=== PATIENT | female | born 1950 | race Caucasian/White ===

== ENCOUNTER 2019-07-08 10:16 | Outpatient (CLI) | payer MEDICARE, SELFPAY ==
--- NOTE | ~2019-07-08 | XR_ITS ---
XR lumbar spine 2-3V 07/08/2019 10:42 Indication: Low back pain. Procedure: 3 views lumbar spine Comparison: 05/27/2017 Findings: Mild dextrocurvature of the spine centered at the thoracolumbar junction. There is disc mina rowing at all lumbar levels except L5-S1. There is moderate multilevel facet hypertrophy. There is fu aneesh of multiple spinous processes posteriorly. No acute fracture, subluxation or dislocation. No carolina dence for spondylolisthesis. There is atherosclerosis of the aorta. Sacral foramen are symmetric. The re are degenerative changes of the hips. Impression: 1: Moderate lumbar spondylosis Reviewed, dictated and finalized at location A. TING TRADES WORKER Impression: 1: Moderate lumbar spondylosis
== END 2019-07-08 10:17 | disposition home or self-care (01) ==
LOC: CHSIMG 10:22
PROVIDERS: PCP Internal Medicine; Visit Provider Internal Medicine
DX: M54.5 Low back pain (principal)
CPT/HCPCS: 72100

== ENCOUNTER 2020-07-29 09:59 | Outpatient (CLI) | payer MEDICARE, SELFPAY ==
[2020-07-29 11:13] LABS: SARS-CoV-2 Ag Negative (Negative)
[2020-07-30 14:41] LABS: SARS-CoV-2 RNA PCR Negative
== END 2020-07-29 10:00 | disposition home or self-care (01) ==
LOC: CHSLAB 10:04
PROVIDERS: PCP Internal Medicine; Visit Provider Internal Medicine
DX: Z20.822 Contact with and (suspected) exposure to COVID-19 (principal)
CPT/HCPCS: 87426; C9803; U0003; U0005

== ENCOUNTER 2020-08-19 10:33 | Outpatient (CLI) | payer MEDICARE, SELFPAY ==
--- NOTE | ~2020-08-19 | XR_ITS ---
EXAMINATION: XR hip RT min 2V DATE: 08/19/2020 10:50 INDICATION: Right hip pain. TECHNIQUE: 2 views of right hip were obtained. COMPARISON: None. FINDINGS: Bone alignment is normal. No fracture. There is mild right hip osteoarthritis. IMPRESSION: 1. Mild right hip osteoarthritis. Reviewed, dictated and finalized at location A.
== END 2020-08-19 10:34 | disposition home or self-care (01) ==
LOC: CHSIMG 10:35
PROVIDERS: PCP Internal Medicine; Visit Provider Internal Medicine
DX: M25.551 Pain in right hip (principal)
CPT/HCPCS: 73502

== ENCOUNTER 2021-03-10 09:12 | Outpatient (CLI) | payer MEDICARE, SELFPAY ==
[2021-03-10 13:46] LABS: SARS-CoV-2 RNA PCR Positive (Negative)
== END 2021-03-10 09:13 | disposition home or self-care (01) ==
LOC: CHSLAB 09:14
PROVIDERS: PCP Internal Medicine; Visit Provider Internal Medicine
DX: U07.1 COVID-19 (principal)
CPT/HCPCS: C9803; U0003; U0005

== ENCOUNTER 2021-03-14 10:29 | Outpatient (CLI) | payer MEDICARE, SELFPAY ==
[2021-03-14 11:30] VITALS: BP 144/76; PULSE 76; RESP 18; TEMP 36.4; O2SAT 99
[2021-03-14] MEDS: diphenhydrAMINE HCl CAP 25 MG CAPSULE PO (11:50)
[2021-03-14] MEDS: ACETAMINOPHEN 325 MG TABLET 650 MG PO (11:50)
[2021-03-14] MEDS: FAMOTIDINE 20 MG TABLET PO (11:51)
== END 2021-03-14 10:30 | disposition home or self-care (01) ==
LOC: CHSTREATRM 10:32
PROVIDERS: PCP Internal Medicine; Visit Provider Internal Medicine
DX: Z23 Encounter for immunization (principal); U07.1 COVID-19
CPT/HCPCS: 96365; A9270; M0245; Q0245

== ENCOUNTER 2022-01-12 10:21 | Outpatient (CLI) | payer MEDICARE, SELFPAY ==
--- NOTE | ~2022-01-12 | XR_ITS ---
EXAMINATION: XR hand RT min 3V DATE: 01/12/2022 10:42 INDICATION: Right hand injury. TECHNIQUE: 3 views of right hand were obtained. COMPARISON: None. FINDINGS: Bone alignment is normal. There is a comminuted fracture of neck of fifth metacarpal. The m ain distal fracture fragment demonstrates impaction and 15 degrees palmar angulation. There is mild o steoarthritis of first carpometacarpal joint and second-fourth metacarpophalangeal joints. There is m ild to moderate osteoarthritis of most of the interphalangeal joints. There is severe osteoarthritis of second and third distal interphalangeal joints. IMPRESSION: 1. Comminuted fracture of neck of fifth metacarpal. Reviewed, dictated and finalized at location A.
== END 2022-01-12 10:22 | disposition home or self-care (01) ==
PROVIDERS: PCP Internal Medicine; Visit Provider Internal Medicine
DX: S69.91XA Unspecified injury of right wrist, hand and finger(s), initial encounter (principal)
CPT/HCPCS: 73130

== ENCOUNTER 2022-02-24 09:02 | Outpatient (CLI) | payer MEDICARE, SELFPAY ==
--- NOTE | ~2022-02-24 | XR_ITS ---
EXAM: XR hand RT min 3V DATE: 02/24/2022 09:23 HISTORY: F/U metacarpal fracture . COMPARISON: 01/12/2022. FINDINGS: Decreased mineralization. Anteriorly angulated right fifth metacarpal head fracture, no si gnificant healing change, slight rotation of a fragment of bone, stable alignment of the dominant dis pavel fragment. No lytic or blastic lesion. Scattered osteoarthritic change. No erosion or periosteal c hange. Soft tissues within normal limits. IMPRESSION: Grossly stable right fifth metacarpal head fracture, no significant interval healing reyes ge. Reviewed, dictated and finalized at location K. IMPRESSION: Grossly stable right fifth metacarpal head fracture, no significant interval healing change.
== END 2022-02-24 09:03 | disposition home or self-care (01) ==
LOC: CHSLAB 09:06
PROVIDERS: PCP Internal Medicine; Visit Provider Internal Medicine
DX: S62.306D Unspecified fracture of fifth metacarpal bone, right hand, subsequent encounter for fracture with routine healing (principal)
CPT/HCPCS: 73130

== ENCOUNTER 2022-03-27 13:07 | Outpatient (CLI) | payer MEDICARE, SELFPAY ==
--- NOTE | ~2022-03-27 | XR_ITS ---
EXAMINATION: XR hand RT min 3V INDICATION: Right fifth metacarpal fracture follow-up TECHNIQUE: Three views of the right hand are obtained. COMPARISON: 02/24/2022 FINDINGS: Again seen is a comminuted neck fracture of the fifth metacarpal. Calcified callus at the f racture site continues to increase. There are approximately 15 degrees of persistent palmar angulatio n at the fracture site. No additional fracture is identified. There is mild to moderate osteoarthriti s of the interphalangeal joints. Mild osteoarthritis is noted at the first carpometacarpal joint. IMPRESSION: 1. Comminuted neck fracture of the fifth metacarpal with continued routine healing. Reviewed, dictated and finalized at location B. IMPRESSION: 1. Comminuted neck fracture of the fifth metacarpal with continued routine heal ing.
== END 2022-03-27 13:08 | disposition home or self-care (01) ==
LOC: CHSIMG 13:11
PROVIDERS: PCP Internal Medicine; Visit Provider Internal Medicine
DX: S62.306D Unspecified fracture of fifth metacarpal bone, right hand, subsequent encounter for fracture with routine healing (principal)
CPT/HCPCS: 73130

== ENCOUNTER 2022-05-08 14:17 | Outpatient (CLI) | payer MEDICARE, SELFPAY ==
--- NOTE | ~2022-05-08 | XR_ITS ---
EXAMINATION: XR chest 2V 05/08/2022 14:34 INDICATION: Polyarthralgias PROCEDURE: 2 view chest COMPARISON: 11/28/2017 FINDINGS: The lungs are clear. The cardiomediastinal silhouette is within normal limits. There are no pleural effusions. There is no pneumothorax suspected. There is a superior endplate compression fracture of T12 which is new since prior examination. IMPRESSION: 1: NO ACUTE CARDIOPULMONARY DISEASE. 2: Age-indeterminate superior endplate compression fracture of T12, new since prior chest x-ray dated 11/28/2017. Reviewed, dictated and finalized at location A. NG BASTER IMPRESSION: 1: NO ACUTE CARDIOPULMONARY DISEASE. 2: Age-indeterminate superior endplate compression fracture of T12, new since p rior chest x-ray dated 11/28/2017.
--- NOTE | 2022-05-08 01:00 | ECHO_ITS ---
Patient Info Name: Jessica Pablo Age: 71 years : 1950 Gender: Female Ht: 63 in Wt: 175 lbs BSA: 1.91 m2 HR: 74 bpm BP: 158 / 78 mmHg Heart Rhythm: Sinus Rhythm Technical Quality: Fair Exam Date: 05/08/2022 3:13 PM Exam Location: [facility] Patient Status: Outpatient Admit Date: 05/08/2022 Staff Ordering Physician: Tj Han MD Pigment Grinder: Ritika Chatterjee RDCS Attending Provider: Tj Han MD Exam Type: CA echo doppler color flow Study Info Indications - polyarthralgia R01.1 - Cardiac murmur, unspecified Complete two-dimensional, color flow and Doppler transthoracic echocardiogram is performed. Summary 1. Complete two-dimensional, color flow and Doppler transthoracic echocardiogram is performed. 2. Left ventricular chamber dimension is normal. 3. Left ventricular systolic function is normal, estimated at 60-65%. 4. The left ventricular diastolic function is grade I diastolic dysfunction. 5. E/e' 10 is mildly elevated. 6. There is moderate aortic valve sclerosis. 7. There is mild aortic valve stenosis with a peak velocity of 251 cm/s, mean gradient of 14 mmHg, and aortic valve area of 1.6 cm2. 8. No pulmonary hypertension, estimated pulmonary arterial systolic pressure is 28 mmHg. Left Ventricle E/e' 10 is mildly elevated. Left ventricular chamber dimension is normal. Left ventricular systolic function is normal, estimated at 60-65%. The left ventricular diastolic function is grade I diastolic dysfunction. Right Ventricle Right ventricular systolic function is normal and with normal TAPSE 2.3 cm. Right ventricular chamber dimension is normal. Left Atria Left atrial chamber dimension is normal. Right Atria Right atrial chamber dimension is normal. Aortic Valve The aortic valve is probable trileaflet. There is moderate aortic valve sclerosis. There is mild aortic valve stenosis with a peak velocity of 251 cm/s, mean gradient of 14 mmHg, and aortic valve area of 1.6 cm2. There is no aortic valve regurgitation. Pulmonic Valve There is no pulmonic regurgitation. Mitral Valve There is no mitral valve stenosis. There is no mitral valve regurgitation. Tricuspid Valve There is no tricuspid valve regurgitation. No pulmonary hypertension, estimated pulmonary arterial systolic pressure is 28 mmHg. Pericardium/Pleural There is no pericardial effusion. Inferior Vena Cava Normal inferior vena cava with >50% collapse upon inspiration consistent with normal right atrial pressure, 5 mmHg. Aorta The aortic root size at the sinus of Valsalva is normal. Left Ventricular Outflow Tract Name Value Normal LVOT 2D LVOT Diameter 2.0 cm LVOT Doppler LVOT Peak Velocity 104 cm/s LVOT Peak Gradient 4 mmHg LVOT Mean Gradient 3 mmHg LVOT VTI 26 cm LVOT VTI/AV VTI Ratio 0.5 LVOT Stroke Volume 84 ml Pulmonic Valve Name
== END 2022-05-08 14:18 | disposition home or self-care (01) ==
LOC: CHSIMG 14:20
PROVIDERS: PCP Internal Medicine; Visit Provider Internal Medicine
DX: R01.1 Cardiac murmur, unspecified (principal); M13.0 Polyarthritis, unspecified
CPT/HCPCS: 71046; 93306

== ENCOUNTER 2023-04-26 08:31 | Outpatient (CLI) | payer MEDICARE, SELFPAY ==
[2023-04-26 08:55] LABS: Appearance Urine Clear (Clear); Bilirubin Urine Negative (Negative); Blood Urine Negative (Negative); Color Urine Yellow (Yellow); Glucose Urine UA Negative (Negative); Ketones Urine Negative (Negative); Leukocyte Esterase Ur Trace (Negative); Nitrate Urine Negative (Negative); Protein Urine Trace (Negative); Specific Grav Ur >= 1.030 (1.010-1.020)
[2023-04-26 09:13] LABS: Add Urine Microscopic? YES; Bacteria Urine Trace /hpf; Mucus Urine Moderate /lpf; RBC Urine None seen /hpf (0-2); Squamous Epithelial Cell Urine Moderate /hpf (Few)
[2023-04-26 09:40] LABS: Alanine Aminotransferase 32 U/L (14-59); Albumin Level 3.6 g/dL (3.4-5.0); Alkaline Phosphatase 49 U/L (46-116); Anion Gap 8 mmol/L (8-16); Aspartate Amino Transferase 21 U/L (15-37); Bilirubin,Total 0.4 mg/dL (0.00-1.00); Blood Urea Nitrogen 25 mg/dL (7-18); Calcium 8.7 mg/dL (8.5-10.1); Carbon Dioxide 28 mmol/L (21-32); Chloride 106 mmol/L (98-108); Estimated Glomerular Filt Rate 58; Glucose 104 mg/dL (70-99); Osmolality Calculated 298 mOsm/kg (285-295); Potassium 4.5 mmol/L (3.5-5.1); Sodium 142 mmol/L (136-145); Thyroid Stimulating Hormone 1.77 uIU/mL (0.36-3.74); Total Protein 7.3 g/dL (6.4-8.2)
== END 2023-04-26 08:32 | disposition home or self-care (01) ==
PROVIDERS: PCP Internal Medicine; Visit Provider Internal Medicine
DX: E03.9 Hypothyroidism, unspecified (principal)
CPT/HCPCS: 36415; 80053; 81001; 84443

== ENCOUNTER 2023-06-29 13:56 | Outpatient (CLI) | payer MEDICARE, SELFPAY ==
--- NOTE | ~2023-06-29 | XR_ITS ---
XR chest 2V 06/29/2023 14:37 Indication: Chest pain after fall Procedure: 2 view chest Comparison: 05/08/2022 Findings: Heart size normal. No focal air space disease, pulmonary edema, pleural effusion or suspect ed pneumothorax. There is a lower thoracic wedge compression deformity, likely chronic. Mild thoracic spondylosis. Impression: 1: No acute cardiopulmonary disease. Reviewed, dictated and finalized at location L. DESIGN LEAD Impression: 1: No acute cardiopulmonary disease.
--- NOTE | ~2023-06-29 | XR_ITS ---
EXAMINATION: XR thoracic spine 3V DATE: 06/29/2023 14:37 INDICATION: Midsternal pain. Fall. TECHNIQUE: 3 views of the thoracic spine on 4 radiographs were obtained. COMPARISON: Chest 2 views 05/08/2022 FINDINGS: There is 7 degrees levocurvature of upper thoracic spine. There is kyphosis of thoracic spi ne. There is a chronic compression fracture of T11 with 2/5 loss of height. There is mildly decreased disc height at multiple levels in mid and lower thoracic spine. There are endplate osteophytes at mo st levels. IMPRESSION: 1. Mild thoracic spondylosis. 2. Thoracic kyphosis. Reviewed, dictated and finalized at location E. CONFINEMENT SYSTEM MANAGER
--- NOTE | 2023-06-29 14:07 | ECG_ITS ---
Measurements Intervals [place] Rate: 73 P: 55 TX: 153 QRS: 27 QRSD: 81 T: 53 QT: 356 QTc: 394 Interpretive Statements SINUS RHYTHM LOW QRS VOLTAGE IN PRECORDIAL LEADS BORDERLINE ECG NO PREVIOUS ECG AVAILABLE FOR COMPARISON Electronically Signed On 06-29-2023 14:12:28 SOCIAL WORK THERAPIST by Reji Banuelos D.O.
[2023-06-29 14:46] LABS: Basophils Absolute Auto 0.03 K/mm3 (0.00-0.10); Basophils Percent Auto 0.2 % (0.0-1.0); Eosinophils Absolute Auto 0.11 K/mm3 (0.02-0.50); Eosinophils Percent Auto 0.9 % (1.0-6.0); Hematocrit 43.4 % (35.0-42.0); Hemoglobin 13.6 g/dL (11.7-13.8); Immature Granulocyte Absolute 0.05 K/mm3 (0.00-0.00); Immature Granulocyte Percent A 0.4 % (0.0-0.0); Lymphocytes Percent Auto 26.6 % (18.0-42.0); Mean Corpuscular HGB Conc 31.3 g/dL (32.0-36.0); Mean Corpuscular Hemoglobin 28.8 pg (27.0-31.0); Mean Corpuscular Volume 91.8 fL (78.0-102.0); Mean Platelet Volume 10.5 fl (9.2-11.8); Monocytes Absolute Auto 0.87 K/mm3 (0.10-0.90); Neutrophils Percent Auto 64.9 % (50.0-70.0); Platelet Count Result 212 K/mm3 (150-420); Red Blood Count 4.73 M/mm3 (4.20-5.40); Red Cell Distribution Width 12.9 % (11.6-14.4); White Blood Count 12.4 K/mm3 (4.8-10.8)
[2023-06-29 15:56] LABS: Alanine Aminotransferase 29 U/L (14-59); Albumin Level 3.6 g/dL (3.4-5.0); Alkaline Phosphatase 46 U/L (46-116); Anion Gap 9 mmol/L (8-16); Aspartate Amino Transferase 21 U/L (15-37); Bilirubin,Total 0.3 mg/dL (0.00-1.00); Blood Urea Nitrogen 23 mg/dL (7-18); Calcium 8.8 mg/dL (8.5-10.1); Carbon Dioxide 29 mmol/L (21-32); Chloride 104 mmol/L (98-108); Creatine Kinase 81 U/L (26-192); Estimated Glomerular Filt Rate 49; Glucose 90 mg/dL (70-99); Osmolality Calculated 297 mOsm/kg (285-295); Potassium 4.6 mmol/L (3.5-5.1); Sodium 142 mmol/L (136-145); Total Protein 7.8 g/dL (6.4-8.2)
== END 2023-06-29 13:57 | disposition home or self-care (01) ==
LOC: CHSLAB 14:00
PROVIDERS: PCP Internal Medicine; Visit Provider Internal Medicine
DX: R07.9 Chest pain, unspecified (principal); M43.04 Spondylolysis, thoracic region; M40.294 Other kyphosis, thoracic region
CPT/HCPCS: 36415; 71046; 72072; 80053; 82550; 82553; 84484; 85025; 93005

== ENCOUNTER 2024-07-04 11:37 | Outpatient (CLI) | payer MEDICARE, SELFPAY ==
--- NOTE | 2024-07-04 11:45 | ECHO_ITS ---
Patient Info Name: Jessica Pablo Age: 73 years : 1950 Gender: Female Ht: 63 in Wt: 180 lbs BSA: 1.94 m2 HR: 67 bpm BP: 130 / 72 mmHg Technical Quality: Fair Exam Date: 07/04/2024 12:35 PM Exam Location: [facility] Patient Status: Outpatient Admit Date: 07/04/2024 Staff Ordering Physician: jT Han MD Glass Blower Helper: Radha Matamoros RDCS Attending Provider: Tj Han MD Exam Type: CA echo doppler color flow Study Info Indications - Aortic stenosis Summary 1. Left ventricular chamber dimension is normal. 2. Left ventricular systolic function is normal, estimated at 60-65%. 3. The left ventricular diastolic function is grade I diastolic dysfunction. 4. E/e' 9 is minimally elevated. 5. Left atrial chamber dimension is mildly enlarged. 6. There is severe aortic valve sclerosis. 7. There is moderate aortic valve stenosis with a peak velocity of 272 cm/s, mean gradient of 17 mmHg, and aortic valve area of 1.1 cm2. 8. There is trace mitral valve regurgitation. 9. There is mild tricuspid valve regurgitation. 10. No pulmonary hypertension, estimated pulmonary arterial systolic pressure is 36 mmHg. Left Ventricle E/e' 9 is minimally elevated. Left ventricular chamber dimension is normal. Left ventricular systolic function is normal, estimated at 60-65%. The left ventricular diastolic function is grade I diastolic dysfunction. Right Ventricle Right ventricular systolic function is normal and with normal TAPSE 1.9 cm. Right ventricular chamber dimension is normal. Left Atria Left atrial chamber dimension is mildly enlarged. Right Atria Right atrial chamber dimension is normal. Aortic Valve The aortic valve is trileaflet. There is severe aortic valve sclerosis. There is moderate aortic valve stenosis with a peak velocity of 272 cm/s, mean gradient of 17 mmHg, and aortic valve area of 1.1 cm2. There is no aortic valve regurgitation. Pulmonic Valve There is no pulmonic regurgitation. Mitral Valve There is no mitral valve stenosis. There is trace mitral valve regurgitation. Tricuspid Valve There is mild tricuspid valve regurgitation. No pulmonary hypertension, estimated pulmonary arterial systolic pressure is 36 mmHg. Pericardium/Pleural There is no pericardial effusion. Inferior Vena Cava Normal inferior vena cava with >50% collapse upon inspiration consistent with normal right atrial pressure, 5 mmHg. Aorta The aortic root size at the sinus of Valsalva is normal. Left Ventricular Outflow Tract Name Value Normal LVOT 2D LVOT Diameter 2.1 cm LVOT Doppler LVOT Peak Velocity 105 cm/s LVOT Peak Gradient 4 mmHg LVOT Mean Gradient 2 mmHg LVOT VTI 26 cm LVOT VTI/AV VTI Ratio 0.3 LVOT Stroke Volume 87 ml Pulmonic Valve Name Value Normal PV Doppler PV Peak Velocity 84 cm/s PV Peak Gradient 3 mmHg Mitral Valve Name Value Normal MV Doppler MV Peak Gradient 5 mmHg MV Mean Gradient 2 mmHg MV Decel [place] 253 cm/s2 MV PHT 83 ms MV Area (PHT) 2.7 cm2 4.0-5.0 MV Area (Cont Eq VTI) 2.9 cm2 MV Diastolic Function MV E Peak Velocity 72 cm/s MV A Peak Velocity 93 cm/s MV E/A 0.8 MV Decel Time 286 ms Tricuspid Valve Name Value Normal TV Regurgitation Doppler TR Peak Velocity 277 cm/s TR Peak Gradient 27 mmHg Estimated PAP/RSVP RA Pressure 5 mmHg <=5 PA Systolic Pressure 36 mmHg <36 RV Systolic Pressure 36 mmHg <36 Aortic Valve Name Value Normal AV Doppler AV Peak Velocity 272 cm/s AV Peak Gradient 27 mmHg AV Mean Gradient 17 mmHg AV VTI 77 cm AV Area (Cont Eq VTI) 1.1 cm2 >=3.0 AV Area (Cont Eq Juanito) 1.3 cm2 AV V1/V2 Ratio 0.39 AV Regurgitation 2D LVOT Area 3.4 cm2 Ventricles Name Value Normal LV Dimensions 2D/MM IVS Diastolic Thickness (2D) 0.8 cm 0.6-1.0 LVID Diastole (2D) 4.6 cm 3.8-5.2 LVIW Diastolic Thickness (2D) 0.8 cm 0.6-0.9 LVID Systole (2D) 3.1 cm 2.2-3.5 LVOT Diameter 2.1 cm LV Mass (2D Cubed) 116.36 g 67.00-162.00 LV Mass Index (2D Cubed) 60 g/m2 43-95 Relative Wall Thickness (2D) 0.33 LV Fractional Shortening/Ejection Fraction 2D/MM LV Fractional Shortening (2D) 33 % 27-45 LV EF (2D Teicholz) 61 % 54-74 LV Diastolic Volume (4C MOD) 96 ml LV EF (4C MOD) 64 % LV Diastolic Volume (2C MOD) 79 ml LV EF (2C MOD) 54 % LV Diastolic Volume (BP MOD) 89 ml 46-106 LV Diastolic Volume Index (BP MOD) 46 ml/m2 29-61 LV Systolic Volume (BP MOD) 36 ml 14-42 LV Systolic Volume Index (BP MOD) 18 ml/m2 8-24 LV EF (BP MOD) 60 % 54-74 LV Diastolic Length (4C) 7.6 cm LV Systolic Length (4C) 6.4 cm LV Stroke Volume (4C MOD) 62 ml Atria Name Value Normal LA Dimensions LA Volume (4C A-L) 59 ml Report Signatures
== END 2024-07-04 11:38 | disposition home or self-care (01) ==
LOC: CHSIMG 11:40
PROVIDERS: PCP Internal Medicine; Visit Provider Internal Medicine
DX: E03.9 Hypothyroidism, unspecified (principal); E78.5 Hyperlipidemia, unspecified; I35.0 Nonrheumatic aortic (valve) stenosis; I07.1 Rheumatic tricuspid insufficiency
CPT/HCPCS: 93306

== ENCOUNTER 2024-11-13 08:08 | Outpatient (CLI) | payer MEDICARE, SELFPAY ==
[2024-11-13 09:21] LABS: Alanine Aminotransferase 30 U/L (6-35); Albumin Level 4.1 g/dL (3.5-5.1); Alkaline Phosphatase 42 U/L (38-126); Anion Gap 5 mmol/L (4-12); Aspartate Amino Transferase 33 U/L (14-36); Bilirubin,Total 0.4 mg/dL (0.2-1.3); Blood Urea Nitrogen 24 mg/dL (7-17); Calcium 9.1 mg/dL (8.4-10.2); Carbon Dioxide 28 mmol/L (22-30); Chloride 108 mmol/L (98-107); Cholesterol 178 mg/dL (0-200); Estimated Glomerular Filt Rate 57; Glucose 98 mg/dL (65-110); HDL Direct 45 mg/dL; LDL Cholesterol Calculated 103 mg/dL (<130); Osmolality Calculated 296 mOsm/kg (285-295); Sodium 141 mmol/L (137-145); Total Protein 6.9 g/dL (6.3-8.2); Triglycerides 150 mg/dL (<150)
== END 2024-11-13 08:09 | disposition home or self-care (01) ==
LOC: CHSLAB 08:10
PROVIDERS: PCP Internal Medicine; Visit Provider Internal Medicine Cardiovascular Disease
DX: E78.5 Hyperlipidemia, unspecified (principal)
CPT/HCPCS: 36415; 80053; 80061

== ENCOUNTER 2025-04-03 14:34 | Outpatient (CLI) | payer MEDICARE, SELFPAY ==
--- NOTE | 2025-04-03 14:36 | ECHO_ITS ---
Patient Info Name: Jessica Pablo Age: 74 years : 1950 Gender: Female Ht: 63 in Wt: 170 lbs BSA: 1.88 m2 HR: 83 bpm BP: 145 / 83 mmHg Technical Quality: Good Exam Date: 04/03/2025 2:47 PM Patient Status: O Admit Date: 04/03/2025 Exam Type: CA echo doppler color flow Complete two-dimensional, color flow and Doppler transthoracic echocardiogram is performed. Breaker Table Worker: Janet Hall Attending Provider: Reji Banuelos DO Summary 1. Complete two-dimensional, color flow and Doppler transthoracic echocardiogram is performed. 2. Left ventricular chamber dimension is normal. 3. Left ventricular systolic function is normal, estimated at 60-65. 4. The left ventricular diastolic function is grade I diastolic dysfunction. 5. E/e' 14 is mildly elevated. 6. Left atrial chamber dimension is moderately enlarged. 7. The aortic valve is not well visualized. Cannot determine number of aortic valve leaflets. 8. There is moderate aortic valve sclerosis. 9. There is mild aortic valve stenosis with a peak velocity of 304 cm/s, mean gradient of 20 mmHg, and aortic valve area of 1.7 cm2. 10. The mitral valve has a moderately calcified annulus. Left Ventricle E/e' 14 is mildly elevated. Left ventricular chamber dimension is normal. Left ventricular systolic function is normal, estimated at 60-65. The left ventricular diastolic function is grade I diastolic dysfunction. Right Ventricle Right ventricular chamber dimension is normal. Right ventricular systolic function is normal. Left Atria Left atrial chamber dimension is moderately enlarged. Right Atria Right atrial chamber dimension is normal. Aortic Valve The aortic valve is not well visualized. Cannot determine number of aortic valve leaflets. There is moderate aortic valve sclerosis. There is mild aortic valve stenosis with a peak velocity of 304 cm/s, mean gradient of 20 mmHg, and aortic valve area of 1.7 cm2. There is no aortic valve regurgitation. Pulmonic Valve There is no pulmonic regurgitation. Mitral Valve The mitral valve has a moderately calcified annulus. There is no mitral valve stenosis. There is no mitral valve regurgitation. Tricuspid Valve There is no tricuspid valve regurgitation. Pericardium/Pleural There is no pericardial effusion. Inferior Vena Cava Normal inferior vena cava with >50% collapse upon inspiration consistent with normal right atrial pressure, 5 mmHg. Aorta The aortic root size at the sinus of Valsalva is normal. Left Ventricular Outflow Tract Name Value Normal LVOT 2D LVOT Diameter 2.0 cm LVOT Doppler LVOT Peak Velocity 110 cm/s LVOT Peak Gradient 5 mmHg LVOT Mean Gradient 2 mmHg LVOT VTI 34 cm LVOT VTI/AV VTI Ratio 0.6 LVOT Stroke Volume 106 ml LVOT CO 6.8 l/min LVOT CI 3.6 l/min/m2 Pulmonic Valve Name Value Normal RVOT Doppler RVOT Peak Velocity 109 cm/s RVOT Peak Gradient 5 mmHg PV Doppler PV Peak Velocity 125 cm/s PV Peak Gradient 6 mmHg Mitral Valve Name Value Normal MV Diastolic Function MV E Peak Velocity 89 cm/s MV A Peak Velocity 110 cm/s MV E/A 0.8 MV Decel Time (PW) 257 ms MV Annular TDI MV E/e' (Septal) 17.4 MV E/e' (Lateral) 12.5 MV E/e' (Average) 14.9 Tricuspid Valve Name Value Normal Estimated PAP/RSVP RA Pressure 5 mmHg <=5 TV Annular TDI TV Lateral Gay s' Velocity 13.1 cm/s >=9.5 Aortic Valve Name Value Normal AV Doppler AV Peak Velocity 304 cm/s AV Peak Gradient 32 mmHg AV Mean Gradient 20 mmHg AV VTI 61 cm AV Area (Cont Eq VTI) 1.7 cm2 >=3.0 AV Area (Cont Eq Juanito) 1.1 cm2 AV DI (Juanito) 0.36 AV Regurgitation 2D LVOT Area 3.1 cm2 Ventricles Name Value Normal LV Dimensions 2D/MM IVS Diastolic Thickness (2D) 0.8 cm 0.6-1.0 LVID Diastole (2D) 3.6 cm 3.8-5.2 LVIW Diastolic Thickness (2D) 0.8 cm 0.6-0.9 LVID Systole (2D) 2.4 cm 2.2-3.5 LVOT Diameter 2.0 cm LV Mass (2D Cubed) 77.58 g 67.00-162.00 LV Mass Index (2D Cubed) 41 g/m2 43-95 Relative Wall Thickness (2D) 0.44 <=0.42 LV Fractional Shortening/Ejection Fraction 2D/MM LV Fractional Shortening (2D) 33 % 27-45 LV EF (2D Teichholz) 63 % LV Diastolic Volume (4C MOD) 69 ml LV EF (4C MOD) 62 % LV Diastolic Volume (2C MOD) 71 ml LV EF (2C MOD) 67 % LV Diastolic Volume (BP MOD) 71 ml 46-106 LV Diastolic Volume Index (BP MOD) 38 ml/m2 29-61 LV Systolic Volume (BP MOD) 25 ml 14-42 LV Systolic Volume Index (BP MOD) 13 ml/m2 8-24 LV EF (BP MOD) 64 % 54-74 LV Diastolic Length (4C) 7.7 cm LV Systolic Length (4C) 6.0 cm LV Stroke Volume (4C MOD) 42 ml Atria Name Value Normal LA Dimensions LA Volume (4C A-L) 26 ml LA Volume (BP A-L) 28 ml RA Dimensions RA Systolic [place] Length (4C) 3.9 cm 2.2-2.8 RA Area (4C) 9.5 cm2 <=18.0 Report Signatures
--- OUTSIDE RECORDS SUMMARY | 2025-04-03 17:00 | XMS_ITS | Clinical Summary ---
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 Gender Identity Not on file Sexual Orientation Not on file Plan of Treatment Health Maintenance Due Date Last Done Comments Colorectal Cancer Screening Colonoscopy (10 Years) 1950 Hepatitis C 1968 DTaP, Tdap and Td Vaccines ( 1 - Tdap) 1969 Mammogram Screening 1990 Pneumococcal Vaccine: 50+ Ye ars (1 of 1 - PCV) 2000 Zoster Vaccines (1 of 2) 2000 Dexa Scan (General) 09/24/2015 COVID-19 Vaccine (2024-2 6 season) 2025 Influenza Adult (#1) 2025 RSV Immunization or 60+ Years (1 - 1-dose 75+ series) 2025 Hepatitis A Vaccines Aged Out No long er eligible based on patient's age to complete this topic Meningococcal B Vaccine Aged Out No l onger eligible based on patient's age to complete this topic Meningococcal Vaccine Aged Out No kenyatta nicolette eligible based on patient's age to complete this topic RSV Immunizations Under 20 Months Aged Out No longer eligible based on patient's age to complete this topic
== END 2025-04-03 14:35 | disposition home or self-care (01) ==
LOC: CHSIMG 14:35
PROVIDERS: PCP Internal Medicine; Visit Provider Internal Medicine Cardiovascular Disease
DX: I35.0 Nonrheumatic aortic (valve) stenosis (principal); I35.8 Other nonrheumatic aortic valve disorders
CPT/HCPCS: 93306